=== PATIENT | male | born 1955 | race Caucasian/White ===

== ENCOUNTER → 2017-05-04 | Outpatient (CLI) | payer OTHER | LOC: CIMAGING 07:51 | PROVIDERS: ATTEND Internal Medicine | DX: K21.9 Gastro-esophageal reflux disease without esophagitis (principal); K29.80 Duodenitis without bleeding; K57.10 Diverticulosis of small intestine without perforation or abscess without bleeding; K83.9 Disease of biliary tract, unspecified | CPT/HCPCS: 76705-PO ==

== ENCOUNTER → 2017-05-05 | Outpatient (CLI) | payer OTHER ==
[~2017-05-05] MED LIST: IOPAMIDOL (ISOVUE-300) 100 ML BTL ONE
== END ==
LOC: FIMAGING 12:38
PROVIDERS: ATTEND Internal Medicine
DX: R10.11 Right upper quadrant pain (principal)
CPT/HCPCS: Q9967

== ENCOUNTER 2017-05-09 14:24 | Inpatient (IN) | payer OTHER ==
[2017-05-09] MEDS ORDERED: LR 1,000 ML IV ONE (15:15)
[2017-05-09] MEDS ORDERED: ceFAZolin 2 GM/DEXTROSE 100 ML IV ONE (15:16)
--- NOTE | 2017-05-09 15:18 | PDGENHP ---
History and Physical History and Physical: CC: abd pain HPI: 62 y/o male with 8 day hx abd pain, found to have cholecystitis on CT today. 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 Alfonso Shen MD, FACS
[2017-05-09] MEDS ORDERED: LR 1,000 ML IV SCH ×2 (15:30→18:30)
[2017-05-09] MEDS ORDERED: CEFAZOLIN 2 GM/DEXTROSE/100 ML BAG IV ONE (15:32)
[2017-05-09 15:39] LABS: % IMMATURE GRANULYOCYTES 1.2 % (0.0-1.1); ABSOLUTE IMMATURE GRANULOCYTES 0.06 10^3/uL (0.00-0.10); ADD DIFF? NO; ADD MORPH? NO; ADD SCAN? NO; ATYPICAL LYMPHOCYTE FLAG 70 (0-99); FRAGMENT RBC FLAG 0 (0-99); HEMATOCRIT 44.1 % (40.0-51.0); HEMOGLOBIN 14.8 g/dL (13.7-17.5); LEFT SHIFT FLG 10 (0-99); LIPEMIA HEMOLYSIS FLAG 80 (0-99); MEAN CELL HEMOGLOBIN 28.9 pg (27.9-34.1); MEAN CELL HEMOGLOBIN CONCENTR. 33.6 g/dL (32.4-36.7); MEAN CELL VOLUME 86.1 fL (81.5-99.8); MEAN PLATELET VOLUME 9.8 fL (8.7-11.7); PLATELET CLUMPS FLAG 0 (0-99); PLATELET COUNT 294 10^3/uL (150-400); RED BLOOD CELL COUNT 5.12 10^6/uL (4.40-6.38); RED CELL DISTRIBUTION WIDTH 11.9 % (11.5-15.2)
[2017-05-09 15:52] LABS: ALBUMIN 3.6 g/dL (3.5-5.0); BILIRUBIN,TOTAL 0.7 mg/dL (0.1-1.4); BILIRUBIN-CONJUGATED 0.4 mg/dL (0.0-0.5); BILIRUBIN-UNCONJUGATED 0.3 mg/dL (0.0-1.1); TOTAL PROTEIN 6.3 g/dL (6.3-8.2)
--- NOTE | 2017-05-09 15:52 | PDANEPAE ---
ANE History of Present Illness abd pain x 1 wk ANE Past Medical History - Cardiovascular History Hx Hypertension: Yes Hx Arrhythmias: No Hx Chest Pain: No Hx Coronary Artery / Peripheral Vascular Disease: No Hx CHF / Valvular Disease: No Hx Palpitations: No - Pulmonary History Hx COPD: No Hx Asthma/Reactive Airway Disease: No Hx Recent Upper Respiratory Infection: No Hx Oxygen in Use at Home: No - Neurologic History Hx Cerebrovascular Accident: No Hx Seizures: No Hx Dementia: No - Endocrine History Hx Diabetes: No Hypothyroid: No Hyperthyroid: No - Renal History Hx Renal Disorders: No - Neurological & Psychiatric Hx Hx Neurological and Psychiatric Disorders: No - Cancer History Hx Cancer: No - Congenital Disorder History Hx Congenital Disorders: No - GI History Hx Gastrointestinal Disorders: No - Chronic Pain History Chronic Pain: No ANE Review of Systems - Exercise capacity Exercise capacity: >=4 METS - Systems Constitutional: Reports: malaise Cardiac: Reports: no symptoms Respiratory: Reports: no symptoms Gastrointestinal: Reports: abdominal pain, nausea Muscolosketal: Reports: no symptoms Neurological: Reports: no symptoms ANE Patient History - Allergies Allergies/Adverse Reactions: No Known Allergies Allergy (Verified 12/03/12 13:03) - Home Medications Home Medications: Prilosec Dose k 12/03/12 [Last Taken 05/09/17] Sertraline Dose Unk 12/03/12 [Last Taken 05/09/17] - NPO status NPO Since - Liquids (Date): 05/09/17 NPO Since - Liquids (Time): 09:30 NPO Since - Solids (Date): 05/08/17 NPO Since - Solids (Time): 23:00 - Smoking Hx Smoking Status: Former smoker - Alcohol Use Alcohol Use: Occasionally - Family Anes Hx Family Anes Hx: none ANE Labs/Vital Signs - Labs Result Diagrams: 05/09/17 15:30 - Vital Signs Blood Pressure: 148/80 Heart Rate: 61 Respiratory Rate: 16 O2 Sat (%): 90 Height: 187.96 cm Weight: 90.718 kg ANE Physical Exam - Airway Mallampati Score: Class 1 Mouth exam: normal dental/mouth exam - Pulmonary Pulmonary: no respiratory distress - Cardiovascular Cardiovascular: regular rate and rhythym - ASA Status ASA Status: II
[2017-05-09] MEDS ORDERED: MIDAZOLAM 2 MG/2 ML VIAL IVP ONE (15:54)
[2017-05-09] MEDS ORDERED: ALBUTEROL 3 ML DEYVIAL IH PRN (16:54)
[2017-05-09] MEDS ORDERED: OXYCODONE/APAP 5/325 TAB PO PRN (16:54)
[2017-05-09] MEDS ORDERED: LR 500 ML IV PRN (16:54)
[2017-05-09] MEDS ORDERED: NALOXONE HCL 0.4 MG/ML INJ IVP PRN (16:54)
[2017-05-09] MEDS ORDERED: LABETALOL HCL 5 MG/ML 20 ML MDV IVP PRN (16:54)
[2017-05-09] MEDS ORDERED: PROMETHAZINE HCL 25 MG/ML INJ IVP PRN (16:54)
[2017-05-09] MEDS ORDERED: MEPERIDINE 25 MG/ML SYR IVP PRN (16:54)
[2017-05-09] MEDS ORDERED: ONDANSETRON 4 MG/2 ML VIAL IVP PRN ×2 (16:54→18:21)
--- NOTE | 2017-05-09 17:21 | POSTANESTH ---
Post Anesthetic Evaluation Cardiovascular Status: Normal, Stable, Similar to Pre-Op Cond Respiratory Status: Normal, Stable, Similar to Pre-op Cond. Level of Consciousness/Mental Status: Can Participate in Eval, Mildly Sleepy, Arousable Pain Control: Adequate, Prn Tx Ordered Nausea/Vomiting Control: Adequate, Prn Tx Ordered Complications Possibly Related to Anesthesia: None Noted (doing well)
[2017-05-09] MEDS ORDERED: IOPAMIDOL (ISOVUE-300) 150 ML BTL ONE (17:26)
[2017-05-09] MEDS ORDERED: fentaNYL 100 MCG/2 ML INJ ONE ×2 (17:40→18:29)
[2017-05-09] MEDS ORDERED: PROPOFOL 200 MG/20 ML VIAL ONE (17:51)
[2017-05-09] MEDS ORDERED: TEMAZEPAM 15 MG CAP PO PRN (18:21)
[2017-05-09] MEDS ORDERED: METOCLOPRAMIDE 10 MG/2 ML VIAL IVP PRN (18:21)
--- NOTE | 2017-05-09 18:21 | POSTOPPROG ---
Post Op Note Date of Operation: 05/09/17 Surgeon: Rio Shen (, FACS) Anesthesiologist: Miesha Anesthesia: GET(General Endotracheal) Pre-op Diagnosis: acute cholecystitis Post-op Diagnosis: acute on chronic cholecystitis Procedure: lap cholecystectomy Findings: chronic inflammation with acute infection/purulent GB contents Inf/Abcess present in the surg proc area at time of surgery?: Yes Depth: Organ Space Specimen(s): gallbladder culture of bile
[2017-05-09] MEDS: fentaNYL 100 MCG/2 ML INJ IVP PRN ×2 (18:30→19:08)
[2017-05-09] MEDS ORDERED: HYDROmorphONE/DILAUDID 1 MG/ML SYR ONE (18:47)
[2017-05-09] MEDS: HYDROmorphONE/DILAUDID 1 MG/ML SYR IVP PRN ×4 (18:49→23:04)
[2017-05-09] MEDS: PANTOPRAZOLE SODIUM 40 MG TAB PO SCH (20:42)
[2017-05-09] MEDS: SENNOSIDES/DOCUSATE SODIUM TAB PO SCH (20:42)
[2017-05-09] MEDS: AMPICILLIN/SULBACTAM 3 GM in NS 100 ML IV SCH (20:42)
[2017-05-09] MEDS: OXYCODONE/APAP 5/325 TAB PO PRN (20:43)
[2017-05-10] MEDS: OXYCODONE/APAP 5/325 TAB PO PRN ×2 (01:39→05:13)
[2017-05-10] MEDS: AMPICILLIN/SULBACTAM 3 GM in NS 100 ML IV SCH ×4 (01:40→19:38)
--- NOTE | 2017-05-10 04:24 | GOP ---
[f rep st] OPERATIVE REPORT DATE OF OPERATION: SURGEON: Rio Shen MD, FACS ANESTHESIA: General endotracheal. ANESTHESIOLOGIST: Geoff Chavez MD and Amauri Rider MD PREOPERATIVE DIAGNOSIS: Acute cholecystitis. POSTOPERATIVE DIAGNOSIS: Acute on chronic cholecystitis. PROCEDURE PERFORMED: Laparoscopic cholecystectomy. FINDINGS: Severe acute cholecystitis in a background of chronic fibrotic pericholecystic change. ESTIMATED BLOOD LOSS: 50 mL. DESCRIPTION OF PROCEDURE: After informed consent was obtained, the patient was brought to the operating room and placed under general anesthesia. The abdomen was prepped and draped in usual fashion. Before proceeding, a time-out and identification of the patient was performed. 0.25% Marcaine was used to infiltrate all incision sites. A transverse incision was made below the umbilicus and carried through the skin and subcutaneous tissues. Hemostasis was secured with cautery. Ventral traction was applied to the abdominal wall with a penetrating towel clamp and a Veress needle introduced into the peritoneal cavity. Position was confirmed by saline infusion. A pneumoperitoneum was established with CO2 gas to a pressure of 15 mmHg. The Veress needle was replaced with a 12 mm bladeless trocar. A 30- degree 10 mm scope was introduced and the peritoneal cavity was visualized. Additional 5 mm ports were placed in the subxiphoid position to the right of the falciform ligament and in the right upper quadrant midclavicular line and right upper quadrant anterior axillary line. This allowed introduction of atraumatic grasping forceps. The liver appeared normal in size. The omentum was plastered over the gallbladder and was firmly adherent to it in a manner that suggested both acute and chronic inflammation. With some difficulty, the omentum was peeled away from the inferior edge of the gallbladder which was tense and distended. There was moderate bleeding from the inflammatory changes. The gallbladder was decompressed and about 12 cc of contents were aspirated with a laparoscopic needle. This appeared purulent and had no resemblance to bile. The purulent contents of the gallbladder was submitted for aerobic and anaerobic culture and sensitivity. The gallbladder was then grasped by the fundus and retracted cephalad. The infundibulum of the gallbladder was ultimately identified with difficulty as there was chronic inflammatory change throughout the pericholecystic area, resulting in fibrosis of most of the structures within the triangle of Calot. Feeling it to be unsafe to dissect through this scar tissue, I elected to perform a top-down dissection and removed the gallbladder from its attachments to the liver so that I could be certain of the position of the cystic duct. As this was performed, the cystic duct came into view. The cystic artery presented posteriorly, and this was dispatched with a Harmonic Scalpel. The cystic duct was incised near the gallbladder. A large stone was noted to be impacted into it. This was milked back towards the gallbladder. The proximal cystic duct appeared quite dilated but with most of it representing periductal fibrotic change. I was unable to cannulate the proximal cystic duct with a taut cholangiogram catheter and abandoned attempts as I was concerned this would result in a perforation of the cystic or common bile duct. The patient's bilirubin was normal preoperatively and there was no evidence of common duct dilatation on imaging studies. The cystic duct was then divided. The gallbladder was set aside and I grasped the cystic duct stump and passed 2-0 PDS endo-loops over it securing each one sequentially further on the proximal side of the duct and securing it from retrograde leakage. The subhepatic space was irrigated and aspirated. The gallbladder was retrieved through the umbilical port site. The umbilical fascial defect was repaired with interrupted 0 Vicryl sutures. The pneumoperitoneum was evacuated after the area been copiously irrigated and hemostasis appeared secure. All ports were removed. The pneumoperitoneum was fully evacuated. The subcutaneous tissues were closed with 3-0 Monocryl suture. Skin was closed with 4-0 Monocryl suture in a subcuticular fashion. Mastisol and Steri-Strips were applied. Needle, sponge, and instrument count were correct. COMPLICATIONS: None. /[id number]/MODL MTDD
[2017-05-10] MEDS: HYDROmorphONE/DILAUDID 1 MG/ML SYR IVP PRN (07:46)
[2017-05-10] MEDS: PANTOPRAZOLE SODIUM 40 MG TAB PO SCH ×2 (07:55→20:25)
[2017-05-10 08:29] LABS: % IMMATURE GRANULYOCYTES 0.7 % (0.0-1.1); ABSOLUTE IMMATURE GRANULOCYTES 0.06 10^3/uL (0.00-0.10); ADD DIFF? NO; ADD MORPH? NO; ADD SCAN? NO; ATYPICAL LYMPHOCYTE FLAG 40 (0-99); FRAGMENT RBC FLAG 0 (0-99); HEMATOCRIT 41.8 % (40.0-51.0); LEFT SHIFT FLG 0 (0-99); LIPEMIA HEMOLYSIS FLAG 80 (0-99); MEAN CELL HEMOGLOBIN CONCENTR. 33.5 g/dL (32.4-36.7); MEAN CELL VOLUME 86.7 fL (81.5-99.8); MEAN PLATELET VOLUME 9.6 fL (8.7-11.7); PLATELET CLUMPS FLAG 20 (0-99); PLATELET COUNT 285 10^3/uL (150-400); RED BLOOD CELL COUNT 4.82 10^6/uL (4.40-6.38)
[2017-05-10] MEDS: SENNOSIDES/DOCUSATE SODIUM TAB PO SCH ×2 (08:37→20:25)
[2017-05-10] MEDS: SERTRALINE HCL 100 MG TAB PO SCH (08:38)
[2017-05-10] MEDS: ENOXAPARIN 40 MG/0.4 ML SYR SC SCH (08:38)
[2017-05-10 09:02] LABS: ALANINE AMINOTRANSFERASE 142 IU/L (21-72); ALBUMIN 3.1 g/dL (3.5-5.0); ALKALINE PHOSPHATASE 106 IU/L (38-126); ANION GAP 9 mEq/L (8-16); ASPARTATE AMINOTRANSFERASE 78 IU/L (17-59); BILIRUBIN,TOTAL 0.6 mg/dL (0.1-1.4); CALCIUM 9.2 mg/dL (8.5-10.4); CARBON DIOXIDE 27 mEq/l (22-31); CHLORIDE 103 mEq/L (97-110); CREATININE 0.7 mg/dL (0.7-1.3); GLOMERULAR FILTRATION RATE > 60; GLUCOSE 143 mg/dL (70-100); POTASSIUM 4.3 mEq/L (3.5-5.2); SODIUM 139 mEq/L (134-144); TOTAL PROTEIN 5.8 g/dL (6.3-8.2)
--- NOTE | 2017-05-10 10:21 | SOAPPROG ---
SOAP Progress Note Assessment/Plan: Assessment: suppurative cholecystitis/gram stain shows GN rods-culture pending post op ileus and nause Plan:will continue Unasyn/slowly advance diet anticipate discharge tomorrow 05/10/17 10:20 Subjective: nausea with Percocet/moderate pain Objective: Vital Signs Temp Pulse Resp BP Pulse Ox 36.8 C 66 18 115/67 94 05/10/17 08:09 05/10/17 08:09 05/10/17 08:09 05/10/17 08:09 05/10/17 08:09 Microbiology 05/09/17 16:50 Gram Stain - Final Other - Other Laboratory Results 05/10/17 08:21 05/10/17 08:21 05/09/17 05/10/17 05/11/17 05:59 05:59 05:59 Intake Total 2117 Output Total 965 Balance 1152 Physical Exam - Physical Exam General Appearance: alert, moderate distress Cardiac/Chest: regular rate, rhythm Abdomen: soft, distended, other (hypoactive bowel sound/distended/dressings dry) Neuro/Psych: alert, normal mood/affect ICD10 Worksheet Patient Problems: Problems Problem Status Onset Suppurative cholecystitis Acute - ICD10 Problem Qualifiers (1) Suppurative cholecystitis
[2017-05-10] MEDS: HYDROmorphONE/DILAUDID 4 MG TAB PO PRN ×2 (12:05→19:38)
[2017-05-11] MEDS: AMPICILLIN/SULBACTAM 3 GM in NS 100 ML IV SCH ×4 (01:38→20:10)
--- NOTE | 2017-05-11 06:20 | SOAPPROG ---
SOAP Progress Note Assessment/Plan: Assessment: suppurative cholecystitis/gram stain shows GN rods-two or more types (ID and MIRYAM requested from [facility]) post op ileus and nausea Plan:will continue IV Unasyn as patient continues to have low grade fever and sweats transition to oral antibiotics when MIRYAM available and patient clinically improved will request ID consult if evidence of unusual/resistant organism demonstrated Alfonso Shen MD, FACS 05/10/17 10:20 05/11/17 06:16 Subjective: still having moderate incisional pain/no flatus or BM cold sweats last night Objective: T max 37.4 Vital Signs Temp Pulse Resp BP Pulse Ox 37.0 C 68 18 152/85 H 90 L 05/11/17 05:15 05/11/17 05:15 05/11/17 05:15 05/11/17 05:15 05/11/17 05:15 Microbiology 05/09/17 16:50 Gram Stain - Final Other - Other 05/09/17 16:50 Mycobacterial Smear (MIRYAM) - Final Other - Other Laboratory Results 05/10/17 08:21 05/10/17 08:21 05/10/17 05/11/17 05/12/17 05:59 05:59 05:59 Intake Total 2117 900 Output Total 965 700 Balance 1152 200 Physical Exam - Physical Exam General Appearance: alert, mild distress Cardiac/Chest: regular rate, rhythm Abdomen: soft, distended, other (mild erythema around umbilical incision/ tympanitic) ICD10 Worksheet Patient Problems: Problems Problem Status Onset Suppurative cholecystitis Acute - ICD10 Problem Qualifiers (1) Suppurative cholecystitis
[2017-05-11] MEDS: ENOXAPARIN 40 MG/0.4 ML SYR SC SCH (08:26)
[2017-05-11] MEDS: SERTRALINE HCL 100 MG TAB PO SCH (08:27)
[2017-05-11] MEDS: PANTOPRAZOLE SODIUM 40 MG TAB PO SCH ×2 (08:27→20:10)
[2017-05-11] MEDS: SENNOSIDES/DOCUSATE SODIUM TAB PO SCH ×2 (08:27→20:10)
[2017-05-12] MEDS: AMPICILLIN/SULBACTAM 3 GM in NS 100 ML IV SCH ×2 (02:20→08:53)
[2017-05-12 04:54] LABS: % IMMATURE GRANULYOCYTES 1.5 % (0.0-1.1); ADD DIFF? NO; ADD MORPH? NO; ADD SCAN? NO; ATYPICAL LYMPHOCYTE FLAG 10 (0-99); FRAGMENT RBC FLAG 0 (0-99); HEMATOCRIT 40.7 % (40.0-51.0); LEFT SHIFT FLG 10 (0-99); LIPEMIA HEMOLYSIS FLAG 90 (0-99); MEAN CELL HEMOGLOBIN 29.7 pg (27.9-34.1); MEAN CELL HEMOGLOBIN CONCENTR. 34.4 g/dL (32.4-36.7); MEAN CELL VOLUME 86.2 fL (81.5-99.8); MEAN PLATELET VOLUME 9.7 fL (8.7-11.7); PLATELET CLUMPS FLAG 0 (0-99); PLATELET COUNT 309 10^3/uL (150-400); RED BLOOD CELL COUNT 4.72 10^6/uL (4.40-6.38); RED CELL DISTRIBUTION WIDTH 12.2 % (11.5-15.2)
[2017-05-12 05:08] LABS: ALANINE AMINOTRANSFERASE 88 IU/L (21-72); ALBUMIN 2.9 g/dL (3.5-5.0); ALKALINE PHOSPHATASE 93 IU/L (38-126); ANION GAP 8 mEq/L (8-16); ASPARTATE AMINOTRANSFERASE 33 IU/L (17-59); BILIRUBIN,TOTAL 0.6 mg/dL (0.1-1.4); CALCIUM 9.2 mg/dL (8.5-10.4); CARBON DIOXIDE 27 mEq/l (22-31); CHLORIDE 104 mEq/L (97-110); CREATININE 0.8 mg/dL (0.7-1.3); GLOMERULAR FILTRATION RATE > 60; GLUCOSE 101 mg/dL (70-100); POTASSIUM 4.1 mEq/L (3.5-5.2); SODIUM 139 mEq/L (134-144); TOTAL PROTEIN 5.7 g/dL (6.3-8.2)
[2017-05-12 08:20] VITALS: TEMP 97.9; O2SAT 91
[2017-05-12] MEDS: SERTRALINE HCL 100 MG TAB PO SCH (08:52)
[2017-05-12] MEDS: SENNOSIDES/DOCUSATE SODIUM TAB PO SCH (08:52)
[2017-05-12] MEDS: PANTOPRAZOLE SODIUM 40 MG TAB PO SCH (08:52)
[2017-05-12] MEDS: ENOXAPARIN 40 MG/0.4 ML SYR SC SCH (08:53)
[2017-05-12] MEDS ORDERED: AMOXICILLIN/CLAVULANATE POT 875/125 MG TAB PO SCH (10:30)
--- NOTE | 2017-05-12 11:14 | PDDCSUM ---
Discharge Summary Discharge Summary: DOA 05/09/17 DOD 05/12/17 DC Diagnosis: cholecystitis, suppurative Rashid was admitted for emergent cholecystectomy for acute cholecystitis. He was found to have suppurative cholecystitis and cultures subsequently grew two strains of E.coli sensitive to Unasyn/Augmentin. He received Unasyn and was transitioned to Augmentin. He was discharged to complete a 7 day course. He will follow up next week. At time of discharge he was afebrile, ambulatory and his incisions were healing without signs of infection. DC Meds: Augmentin 875 BID #14 Prilosec 20 mg q day Ibuprofen 600mg TID prn Alfonso Shen MD, FACS
[2017-05-12 11:26] VITALS: BP 127/74; PULSE 71; RESP 18
== END 2017-05-12 13:29 | disposition home or self-care (01) | DRG 418 ==
LOC: INTOOBSV 14:24 → F3E 14:24 → F1N 16:20 → OBSVTOIN 05-11 10:00
PROVIDERS: ADMIT Surgery; ATTEND Surgery
PROC: 0FT44ZZ Resection of Gallbladder, Percutaneous Endoscopic Approach (ICD-10-PCS; principal; 2017-05-11)
DX: K80.13 Calculus of gallbladder with acute and chronic cholecystitis with obstruction (principal); K56.7 Ileus, unspecified
CPT/HCPCS: J0295; J0690; J1170; J1650; J2250; J2704; J3010; Q9967

== ENCOUNTER → 2017-05-09 | Outpatient (CLI) | payer OTHER ==
[~2017-05-09] MED LIST changes: +BUPIVACAINE 0.25% 30 ML SDV ONE; +DEXAMETHASONE 4 MG/ML VIAL ONE; +KETOROLAC 30 MG/1 ML SDV ONE; +LIDOCAINE 2% 5 ML SDV ONE; +ONDANSETRON 4 MG/2 ML VIAL ONE; +PROPOFOL 200 MG/20 ML VIAL ONE; +ROCURONIUM 50 MG/5 ML VIAL ONE; +fentaNYL 100 MCG/2 ML INJ ONE
== END ==
LOC: CIMAGING 08:01
PROVIDERS: ATTEND Internal Medicine
DX: K82.8 Other specified diseases of gallbladder (principal); I70.0 Atherosclerosis of aorta
CPT/HCPCS: 74160-PO; J1100; J1885; J2405; J2704; J3010; Q9967